=== PATIENT | female | born 1950 | race Caucasian/White ===

== ENCOUNTER → 2020-05-29 16:38 | Outpatient (CLI) | payer MEDICARE ==
[2020-05-30 17:09] LABS: HEMATOCRIT 35.6 % (36.0-48.0); HEMOGLOBIN 10.7 g/dL (12-16); MCHC 30.1 g/dL (31.0-37.0); MCV 89.9 fL (80.0-100.0); MEAN PLATELET VOLUME 11.2 fL (7.4-10.4); PLATELET COUNT 223 10x3/uL (130-400); RBC 3.96 10x6/uL (4.00-5.40); RDW 14.5 % (11.5-14.5); WBC 4.8 10x3/uL (4.8-10.8)
[2020-05-30 17:12] LABS: ERYTHROCYTE SEDIMENTATION RATE 16 mm/hr (0-30)
[2020-05-30 17:39] LABS: EOSINOPHILS 6 % (0-7); LYMPHOCYTES 57 % (15-50); MONOCYTES 3 % (2-11); NEUTROPHILS 34 % (40-80); PLATELET ESTIMATE NORMAL
== END | disposition home or self-care (01) ==
LOC: D.LABREF 16:38
PROVIDERS: ATTEND Family Medicine
DX: L08.9 Local infection of the skin and subcutaneous tissue, unspecified (principal)

== ENCOUNTER → 2020-07-04 14:31 | Outpatient (CLI) | payer MEDICARE ==
[2020-07-04 15:46] LABS: BASOPHILS 0.4 % (0-2); EOSINOPHILS 2.9 % (0-7); HEMATOCRIT 30.6 % (36.0-48.0); HEMOGLOBIN 9.5 g/dL (12-16); IMMATURE GRANULOCYTES 0.5 % (0-5); LYMPHOCYTES 35.1 % (15-50); MCH 26.1 pg (26.0-34.0); MCV 84.1 fL (80.0-100.0); MEAN PLATELET VOLUME 9.8 fL (7.4-10.4); MONOCYTES 9.9 % (2-11); NEUTROPHILS 51.2 % (40-80); RBC 3.64 10x6/uL (4.00-5.40); RDW 13.4 % (11.5-14.5); WBC 8.6 10x3/uL (4.8-10.8)
[2020-07-04 16:02] LABS: PLATELET COUNT 449 10x3/uL (130-400)
[2020-07-04 16:03] LABS: C-REACTIVE PROTEIN 1.7 mg/dL (0.0-0.9); CREATININE - SERUM 1.6 mg/dL (0.6-1.3)
[2020-07-04 16:48] LABS: ERYTHROCYTE SEDIMENTATION RATE 88 mm/hr (0-30)
== END | disposition home or self-care (01) ==
LOC: D.RAD 14:31
PROVIDERS: ATTEND Family Medicine
DX: M00.9 Pyogenic arthritis, unspecified (principal)

== ENCOUNTER → 2020-07-11 15:32 | Outpatient (CLI) | payer MEDICARE ==
[2020-07-11 16:12] LABS: BASOPHILS 0.4 % (0-2); EOSINOPHILS 6.5 % (0-7); HEMATOCRIT 33.1 % (36.0-48.0); HEMOGLOBIN 10.5 g/dL (12-16); IMMATURE GRANULOCYTES 0.2 % (0-5); LYMPHOCYTES 35.2 % (15-50); MCH 26.6 pg (26.0-34.0); MCHC 31.7 g/dL (31.0-37.0); MCV 83.8 fL (80.0-100.0); MEAN PLATELET VOLUME 10.1 fL (7.4-10.4); MONOCYTES 11.2 % (2-11); NEUTROPHILS 46.5 % (40-80); RBC 3.95 10x6/uL (4.00-5.40); RDW 14.6 % (11.5-14.5); WBC 4.6 10x3/uL (4.8-10.8)
[2020-07-11 16:23] LABS: C-REACTIVE PROTEIN 0.2 mg/dL (0.0-0.9); CREATININE - SERUM 1.7 mg/dL (0.6-1.3)
[2020-07-11 16:30] LABS: PLATELET COUNT 309 10x3/uL (130-400)
[2020-07-11 17:41] LABS: ERYTHROCYTE SEDIMENTATION RATE 83 mm/hr (0-30)
== END | disposition home or self-care (01) ==
LOC: D.LABREF 15:32
PROVIDERS: ATTEND Orthopaedic Surgery
DX: M00.9 Pyogenic arthritis, unspecified (principal)

== ENCOUNTER → 2020-07-18 19:51 | Outpatient (CLI) | payer MEDICARE ==
[2020-07-18 20:27] LABS: BASOPHILS 0.2 % (0-2); EOSINOPHILS 4.9 % (0-7); HEMATOCRIT 32.1 % (36.0-48.0); IMMATURE GRANULOCYTES 0.2 % (0-5); LYMPHOCYTES 46.5 % (15-50); MCH 26.5 pg (26.0-34.0); MCHC 31.2 g/dL (31.0-37.0); MCV 84.9 fL (80.0-100.0); MEAN PLATELET VOLUME 10.1 fL (7.4-10.4); NEUTROPHILS 38.2 % (40-80); PLATELET COUNT 254 10x3/uL (130-400); RBC 3.78 10x6/uL (4.00-5.40); RDW 15.5 % (11.5-14.5); WBC 5.1 10x3/uL (4.8-10.8)
[2020-07-18 20:53] LABS: ALT (SGPT) 77 U/L (10-68); CREATININE - SERUM 1.3 mg/dL (0.6-1.3); UREA NITROGEN 24 mg/dL (7-18)
[2020-07-18 21:04] LABS: C-REACTIVE PROTEIN < 0.2 mg/dL (0.0-0.9)
[2020-07-18 21:55] LABS: ERYTHROCYTE SEDIMENTATION RATE 68 mm/hr (0-30)
== END | disposition home or self-care (01) ==
LOC: D.LABREF 19:51
PROVIDERS: ATTEND Family Medicine
DX: T84.53XA Infection and inflammatory reaction due to internal right knee prosthesis, initial encounter (principal)